=== PATIENT | male | born 1940 | race Caucasian/White ===

== ENCOUNTER 2020-12-08 14:43 | Outpatient (CLI) | payer MEDICARE, OTHER | END 2020-12-08 14:44 | disposition home or self-care (01) | LOC: CSHWCC 14:43 | PROVIDERS: ATTEND Nurse Practitioner Family | DX: L89.313 Pressure ulcer of right buttock, stage 3 (principal); L89.323 Pressure ulcer of left buttock, stage 3; K59.09 Other constipation; F32.9 Major depressive disorder, single episode, unspecified; I10 Essential (primary) hypertension; I82.409 Acute embolism and thrombosis of unspecified deep veins of unspecified lower extremity; Z74.01 Bed confinement status | CPT/HCPCS: 11042; 99203; G0463 ==